=== PATIENT | male | born 1965 | race Caucasian/White ===

== ENCOUNTER 2025-05-27 10:19 | Day surgery (SDC) | payer BC, SELFPAY ==
[2025-05-27] VITALS (16 sets, daily range): BP systolic 113–162; BP diastolic 81–111; PULSE 69–112; RESP 13–16; TEMP 36.2–36.6; O2SAT 86–96; BMI 25.8
[2025-05-27] MEDS: LACTATED RINGERS 1000 ML 1,000 ML 100 ML IV ×2 (10:30→12:10)
[2025-05-27] MEDS: SODIUM CHLORIDE 0.9 % (FLUSH) 10 ML SYRINGE IVF (10:48)
[2025-05-27] MEDS: MIDAZOLAM HCL 1 MG/ML inj IVP (11:15)
--- NOTE | 2025-05-27 11:20 | SUR.PREOP ---
TIME?OUT:?1114 PT/RN/MDA?VERIFICATION?OF?SURGICAL?SITE,?PROCEDURE,?AND?CONSENT OBTAINED?PRIOR?TO?INVASIVE?PROCEDURE.
--- NOTE | 2025-05-27 12:07 | W.PM.NB ---
Nerve Block Nerve Block Time Seen by Provider: 11:15 Date Seen: 05/27/25 Type of block requested by surgeon for post-operative analgesia: popliteal Side: right Time out performed: Yes Verification of patient name: Yes Verification of date of : Yes Site marking: site marked Name of person performing procedure: Sin Continuous monitoring Was continuous monitoring of O2 sat, B/P, cardiac catheterization technologist, recorded every 15 minutes?: Yes Procedure Checklist: sterile prep, needles and gloves Ultrasound guided. Images saved: Yes Medications given in 5ml increments after negative aspiration: Marcaine %: 0.25 mL: 20 Patient tolerated procedure well: Yes Additional comments: Needle noted adjacent to nerve Block Charges Block Charge (with Pro Fee): Sciatic Nerve Use of Ultrasound Machine for Block: Yes- US Guidance/pain block
--- NOTE | 2025-05-27 12:08 | P.ANES_ITS ---
Anesthesia Charges Start Date/Time Anesthesia Start Date: 05/27/25 Anesthesia Start Time: 11:59 Stop Date/Time Anesthesia Stop Date: 05/27/25 Anesthesia Stop Time: 14:23 Coding CPT Codes CPT Codes: ANESTH LOWER LEG BONE SURG - 66396 ([id number]) P2 - PATIENT W/MILD SYST DISEASE, QK - ADVENTURE EDUCATION TEACHER 2-4 CNCRNT ANES PROC, QX - DUMPER SVC W/ MD MED DIRECTION
--- NOTE | 2025-05-27 12:08 | W.ANESCHARGE ---
Anesthesia Charges Start Date/Time Anesthesia Start Date: 05/27/25 Anesthesia Start Time: 11:59 Stop Date/Time Anesthesia Stop Date: 05/27/25 Anesthesia Stop Time: 14:23 Coding CPT Codes CPT Codes: ANESTH LOWER LEG BONE SURG - 50390 ([id number]) P2 - PATIENT W/MILD SYST DISEASE, QK - PAPER CUTTER OPERATOR 2-4 CNCRNT ANES PROC, QX - NETWORK ADMINISTRATOR SVC W/ MD MED DIRECTION
--- NOTE | 2025-05-27 13:54 | PM.ORPRC ---
Procedure Note Date of procedure: 05/27/25 Procedure: PREOPERATIVE DIAGNOSIS: Unstable Right ankle Huff B Fracture POSTOPERATIVE DIAGNOSIS: Unstable Right ankle Huff B Fracture NAME OF OPERATION: ORIF SURGEON: James Martin MD BUTCHER OR SMALLGOODS MAKER: Louis Garces PA-C ANESTHESIA: Spinal plus popliteal block ESTIMATED BLOOD LOSS: 25 mL COMPLICATIONS: None SPECIMENS: None DRAINS: None PREOPERATIVE ANTIBIOTICS: Ancef 1 gram INDICATIONS: The patient is a 59-year-old who sustained a right ankle fracture. ORIF was recommended. The risks, benefits and expected outcomes were discussed in detail. These included but were not limited to: Infection, bleeding, injury to blood vessel or nerve, venous thromboembolism. All questions were answered to their satisfaction. Use of an office services assistant was necessary throughout the case for patient positioning and safety, soft tissue retraction and closure. Provider Operated C-arm: C-arm fluoroscopy operated by James Martin MD for ankle fracture ORIF. 187 C-arm spot images were obtained. Fluoroscopy time was 3 minutes and 29 seconds. PROCEDURE: A popliteal block was placed by anesthesia. Spinal anesthesia was administered. The lower extremity was prepped and draped in the usual sterile fashion. A stab incision was made over the anterior and posterior aspect of the fracture site. A Huff reduction clamp was used to obtain an anatomic reduction. The guide pin was placed in the center of the distal fragment of the fibula, percutaneously. Its placement was confirmed with the image intensifier in multiple views. The canal is quite small. We were able to oscillate the guide pin into the proximal fragment. A stab incision was made around the guide pin. The opening reamer was used, past the fracture site. The 3.2 mm reamer was used in the proximal fragment, carefully advancing it to be sure it did not penetrate the cortex. We placed the Arthrex 3 mm x 130 mm Intramedullary nail. The talons were deployed. We placed 2 screws in the distal fragment. We stressed the syndesmosis. There may be 1 or 2 mm of instability. Therefore, we elected to place a tight rope. Rotation of the nail was not ideal for the tight rope to exit in an optimal position on the tibia. Therefore, the custodial supervisor was removed. The guide pin was placed freehand, using the image intensifier to confirm its placement through the distal syndesmotic hole in the nail. Its placement was confirmed in multiple views. The cannulated Reamer was used over the top and the tight rope was placed across all 4 cortices. It was flipped over the medial cortex of the tibia and then tightened. Reduction of the syndesmosis and medial mortise are anatomic. Finally, the end cap was placed. This provides an anatomic reduction of the fibula, with excellent fixation. Implants were imaged in the AP, mortise and lateral views and were felt to be well placed with an excellent reduction. The talus is nicely reduced under the tibial plafond. The wounds were irrigated with normal saline. The office services assistant closed the skin with a 3-0 nylon in an interrupted fashion. The office services assistant placed a dry dressing and short leg Raj Dahl splint. Sponge and needle counts were correct x 2. The patient tolerated the procedure well. There were no apparent complications. They were carefully transferred to the hospital bed and taken to the postanesthesia care unit in satisfactory condition. PLAN: The patient will be discharged to home. They will remain strict nonweightbearing on the lower extremity. They will continue to work on ice and elevation. He will follow up in the office in 2 weeks for a wound check and three views of his ankle out of the splint prior to being seen. At that time, we can anticipate placing him back in the cam walker and allowing some protected weight-bearing, presuming his x-ray looks okay.
--- NOTE | 2025-05-27 14:41 | P.ANES_ITS ---
Anesthesia Charges Start Date/Time Anesthesia Start Date: 05/27/25 Anesthesia Start Time: 11:59 Stop Date/Time Anesthesia Stop Date: 05/27/25 Anesthesia Stop Time: 14:23 Coding CPT Codes CPT Codes: ANESTH LOWER LEG BONE SURG - 89506 ([id number]) P2 - PATIENT W/MILD SYST DISEASE, QK - MIGRANT LEADER 2-4 CNCRNT ANES PROC, QX - LINING STITCHER SVC W/ MD MED DIRECTION
--- NOTE | 2025-05-27 14:41 | W.ANESCHARGE ---
Anesthesia Charges Start Date/Time Anesthesia Start Date: 05/27/25 Anesthesia Start Time: 11:59 Stop Date/Time Anesthesia Stop Date: 05/27/25 Anesthesia Stop Time: 14:23 Coding CPT Codes CPT Codes: ANESTH LOWER LEG BONE SURG - 11908 ([id number]) P2 - PATIENT W/MILD SYST DISEASE, QK - FINGERPRINT CLASSIFIER 2-4 CNCRNT ANES PROC, QX - FILTER WORKER SVC W/ MD MED DIRECTION
--- NOTE | 2025-05-27 16:17 | SUR.PHASEII ---
1600: Patient up to dress independently. Requesting restroom. To restroom via wheelchair and pt successfully voided. Pt returned to room and sitting in recliner. O2 sats 90-92% RA. Pt encouraged to deep breath and cough. During review of discharge instructions, pt's O2 sats occasionally dip to 89%. Lungs clear bilaterally on auscultation. Patient provided written and oral instructions on incentive spirometer use.
--- NOTE | 2025-05-27 16:35 | SUR.PHASEII ---
O2 sats 92-94% RA. Patient continues to deep breath and use incentive spirometer. Patient verbalizes understanding to continue to do so at home.
== END 2025-05-27 16:45 | disposition home or self-care (01) ==
PROVIDERS: PCP Family Medicine; Visit Provider Orthopaedic Surgery
PROC: (CPT 27792; principal; 2025-05-27 11:30)
DX: S82.61XA Displaced fracture of lateral malleolus of right fibula, initial encounter for closed fracture (principal); S93.431A Sprain of tibiofibular ligament of right ankle, initial encounter; G89.18 Other acute postprocedural pain; I10 Essential (primary) hypertension; K21.9 Gastro-esophageal reflux disease without esophagitis; E11.9 Type 2 diabetes mellitus without complications; R33.9 Retention of urine, unspecified
CPT/HCPCS: 27792; 27829; 01480; 64445; 73610; 76000; 76942; 82962; C1713; J0665; J0690; J2250; J2371; J2405; J2704; J3010; J7120

== ENCOUNTER 2025-06-11 09:30 | Outpatient (RCR) | payer BC, SELFPAY | END 2025-10-09 23:59 | disposition home or self-care (01) | PROVIDERS: PCP Family Medicine; Visit Provider Orthopaedic Surgery | DX: Z48.89 Encounter for other specified surgical aftercare (principal); Z51.89 Encounter for other specified aftercare | CPT/HCPCS: 97110; 97162 ==